=== PATIENT | male | born 1945 | race Caucasian/White ===

== ENCOUNTER → 2022-01-21 17:15 | Outpatient (CLI) | payer MEDICARE, SELFPAY ==
--- NOTE | 2022-01-21 | DI.US.S_ITS ---
PROCEDURE: US CAROTID DOPPLER BI INDICATIONS: occlusion and stenosis of bilateral carotid TECHNIQUE: Color and pulse Doppler interrogation was performed of both carotid systems, with image documentation and velocity measurements. COMPARISON: None. FINDINGS: Stenosis calculations are based on SRU ([employer] in [employer]) criteria. Right side: Brachial blood pressure: 161/84 mm Hg. Common carotid artery peak systolic velocity: 119 cm/sec. Internal carotid artery peak systolic velocity: 218 cm/sec. Internal carotid artery end diastolic velocity: 51 cm/sec. External carotid artery peak systolic velocity: 167 cm/sec. ICA/CCA peak systolic ratio: 1.8 . Brannon scale imaging description: Moderate to severe plaque at the bifurcation Percent internal carotid artery stenosis: 50-69% stenosis . Vertebral artery: Flow direction is antegrade. Left side: Brachial blood pressure: 152/83 mm Hg. Common carotid artery peak systolic velocity: 87 cm/sec. Internal carotid artery peak systolic velocity: 290 cm/sec. Internal carotid artery end diastolic velocity: 81 cm/sec. External carotid artery peak systolic velocity: 238 cm/sec. ICA/CCA peak systolic ratio: 3.1 . Brannon scale imaging description: Moderate to severe plaque at the bifurcation Percent internal carotid artery stenosis: 70% to occlusion . Vertebral artery: Flow direction is antegrade. IMPRESSION: Significant plaque at the right internal carotid artery with stenosis measuring 70% to near occlusion. 50-69% stenosis within the right internal carotid artery. Dictated by: Dominique Parker M.D. on 01/22/2022 at 11:13 Approved by: Dmoinique Parker M.D. on 01/22/2022 at 11:16
== END ==
PROVIDERS: PCP Internal Medicine; Referring Provider Internal Medicine Cardiovascular Disease; Visit Provider Internal Medicine Cardiovascular Disease
DX: I65.23 Occlusion and stenosis of bilateral carotid arteries (principal); I35.0 Nonrheumatic aortic (valve) stenosis; Z95.3 Presence of xenogenic heart valve
CPT/HCPCS: 93880